=== PATIENT | female | born 1960 | race Caucasian/White ===

== ENCOUNTER → 2018-04-20 | Outpatient (CLI) | payer OTHER | LOC: GMAH 17:06 | PROVIDERS: ATTEND Family Medicine | DX: M54.2 Cervicalgia (principal) ==

== ENCOUNTER → 2018-05-06 | Outpatient (CLI) | payer OTHER ==
--- NOTE | 2018-05-06 11:48 | RAD ---
EXAM DESCRIPTION: Knee,Right Complete CLINICAL HISTORY: 57 yearsFemale, KNEE PAIN COMPARISON: None. IMPRESSION: 3 views of the right knee demonstrate no evidence of acute fracture, dislocation, or destructive osseous lesion. There are mild changes of osteoarthritis involving all 3 compartments of the knee with narrowing of the joint spaces and small marginal osteophytes. Suprapatellar joint effusion. If further imaging is desired, follow-up MRI may further evaluate for internal derangement. Electronically signed by: Kenton Baldwin MD 05/06/2018 11:47 AM [facility]
--- NOTE | 2018-05-07 13:51 | MRI ---
EXAM DESCRIPTION: Shoulder,Left: Magnetic Resonance Imaging. CLINICAL HISTORY: PAIN IN LEFT SHOULDER COMPARISON: MRI scan cervical spine on the same visit. TECHNIQUE: Multiplanar, high-field MRI, multiple sequences, without contrast, left shoulder. FINDINGS: Intermediate signal and edema signal in the insertion of the supraspinatus tendon, more anterior with minimal fluid at the insertion site. Hypertrophic changes on the anterior tuberosity. Subcortical cystic changes mid aspect of the greater tuberosity. Abutting the undersurface insertion of the anterior infraspinatus tendon. Minimal edema signal in the distal tendon. Minimal edema in the subacromial-subdeltoid bursa. Grade 2 atrophic changes in the teres minor muscle. Tendon is negative. Subscapularis tendon unremarkable. No effusion in the AC joint. Minimal downsloping of the lateral acromion with type II curvature. Coracoid ligaments are intact. Moderate subcoracoid bursal fluid. Minimal narrowing of the supraspinatus tendon outlet at the musculotendinous junction. No glenohumeral joint effusion. No subchondral lesions on the articular surfaces. Normal signal tissue projecting anteriorly from the superior anterior labrum and or the superior glenohumeral ligament encroaching on the lateral aspect of the subcoracoid bursa. Persistent small fissure between the posterior bicipital labral anchor and labrum. Normal signal in the remainder of the labrum. Long head biceps tendon within the bicipital groove. IMPRESSION: 1. Partial-thickness undersurface insertion tear of the anterior fibers of the supraspinatus tendon but not a rim rent tear. Distal supraspinatus tendinitis. Tendinopathy of the distal infraspinatus tendon. Subcortical erosion on the mid greater tuberosity and anterior hypertrophic changes on the tuberosity. 2. Muscle atrophy in the teres minor compared to the remainder of the supraspinatus tendon muscles. This could be related to compression of a branch of the axillary nerve supplying the muscle, most commonly from quadrangular space syndrome. There may be associated paresthesias in the arm. No dominant fluid or soft tissue mass seen in the quadrangular space. 3. Minimal narrowing of the supraspinatus tendon outlet and subcoracoid bursitis. 4. Abnormal soft tissue in the anterior aspect of the subcoracoid bursa which could be projecting from the superior glenohumeral ligament, anterior labrum, or anterior glenoid. 5. Focal tear of the posterior aspect of the superior labrum at the junction with the bicipital labral anchor. Electronically signed by: Dago Pham MD 05/07/2018 1:49 PM [facility]
--- NOTE | 2018-05-07 14:18 | MRI ---
EXAM DESCRIPTION: Cervical Spine: MRI. CLINICAL HISTORY: 57 years Female CERVICALGIA COMPARISON: MRI scan of the left shoulder on the same visit.. TECHNIQUE: Multiplanar, high-field MRI, multiple sequences, non-contrast Cervical spine. FINDINGS: C3-4: Minimal disc desiccation with disc space preserved. Left uncinate spur and mild to moderate left neural foraminal narrowing. Minimal arthrosis left facet. Canal is patent. C4-5: Moderate disc space loss and endplate reactive changes advanced on the right with Schmorl's nodes. 2 mm grade 1 retrolisthesis. Posterior midline disc osteophyte complex bulging 3 mm in the midline and right of midline abutting the cord with mild canal narrowing. Right uncinate spur, larger than left. Right side disc osteophyte complex encroaching on the neural foramen which is stenotic. Moderate left neural foraminal narrowing. C5-6: Disc desiccation moderate disc space loss. Endplate reactive changes more on the right than the left. Bilateral uncinate spurs larger on the right. Hypertrophy of the flavum ligaments and moderate canal narrowing. 2 mm grade 1 retrolisthesis. Disc osteophyte complex on the right resulting in right neural foraminal stenosis. Mild to moderate left neural foraminal narrowing. Facets are unremarkable. C6-7: Disc desiccation and minimal disc space loss. Trace posterior disc bulge. Left uncinate spur and left disc osteophyte complex with moderate left neural foraminal narrowing. Mild canal narrowing. C7-T1: Disc desiccation. Tiny posterior bulge. Bilateral uncinate spurs bilateral mild to moderate neural foraminal narrowing. Mild canal narrowing. Facets are unremarkable. Well-circumscribed hyperintense T1 and T2 signal in the C7 vertebral body anteriorly in the midline and in the left posterior T1 vertebral body and left pedicle. These are consistent with hemangiomas. Normal signal in the C2-3 disc and T1-T2 discs with no bulging. Disc spaces preserved. Canal and neural foramina are patent. Facets negative. Spinal alignment C2-C5. Kyphosis. No cord compression or cord edema. Atlantoaxial joint negative. Base of the cerebellar tonsils is above the foramen magnum. Paravertebral soft tissues subcentimeter cysts/nodules anterior right lobe of thyroid gland. No imaging follow-up is recommended.. Vertebral bodies are not compressed at any level. Normal marrow signal in the remaining vertebral bodies and the posterior elements. IMPRESSION: 1. Spondylosis on the right C5-6 disc space and uncinate spur with right neural foraminal stenosis. Correlate for right C6 radiculopathy. 2. Spondylosis on the right at C4-5 with disc osteophyte complex causing right neural foraminal stenosis. Correlate for right C5 radiculopathy. 3. Moderate narrowing of the left neural foramen at C6-7 by disc osteophyte complex. Correlate for left C7 radiculopathy. 4. Please refer to left shoulder MRI examination and report. Electronically signed by: Dago Pham MD 05/07/2018 2:17 PM [facility]
== END ==
LOC: MRI 11:00
PROVIDERS: ATTEND Family Medicine
DX: M25.561 Pain in right knee (principal); M25.461 Effusion, right knee; M75.52 Bursitis of left shoulder; S46.011A Strain of muscle(s) and tendon(s) of the rotator cuff of right shoulder, initial encounter; M47.892 Other spondylosis, cervical region; M25.78 Osteophyte, vertebrae